=== PATIENT | female | born 1970 | race Caucasian/White ===

== ENCOUNTER 2025-02-03 08:03 | Day surgery (SDC) | payer OTHER, SELFPAY ==
[2025-02-01 15:54] VITALS: BMI 23.3
[2025-02-03] MEDS ORDERED: LevoFLOXacin D5W 500 mg (100 mL) BAG ONE (10:03)
[2025-02-03] MEDS ORDERED: Rocuronium Bromide 10 MG/ML (10ML VIAL) ONE (10:31)
[2025-02-03] MEDS ORDERED: fentaNYL PF 100 MCG/2 ML SYRINGE ONE (11:03)
[2025-02-03] MEDS ORDERED: cefTRIAXone (ROCEPHIN) 2 GM VIAL ONE (11:24)
[2025-02-03] MEDS ORDERED: PROPOFOL 200 MG/20 ML VIAL ONE (11:27)
[2025-02-03] MEDS ORDERED: Ondansetron PF 4 MG/2 ML Vial ONE (11:40)
[2025-02-03] MEDS ORDERED: SUGAMMADEX SODIUM 200 MG/2 ML VIAL ONE (11:50)
[2025-02-03] MEDS ORDERED: Ketorolac Tromethamine 30 MG (1 mL) VIAL ONE (11:57)
[2025-02-03] MEDS ORDERED: Oxybutynin 5 MG TAB ONE (12:22)
== END 2025-02-03 13:45 | disposition home or self-care (01) ==
LOC: SDC 08:03
PROVIDERS: ATTEND Urology
PROC: 0T768DZ Dilation of Right Ureter with Intraluminal Device, Via Natural or Artificial Opening Endoscopic (ICD-10-PCS; principal; 2025-02-03)
PROC: 0TC68ZZ Extirpation of Matter from Right Ureter, Via Natural or Artificial Opening Endoscopic (ICD-10-PCS; principal; 2025-02-03)
DX: N20.1 Calculus of ureter (principal)
CPT/HCPCS: 74018; 74420; 82365; 88300; C1758; C1769; C2617; J0696; J1100; J1885; J1956; J2250; J2405; J2704; Q9967